=== PATIENT | female | born 1970 | race Caucasian/White ===

== ENCOUNTER 2021-03-24 06:54 | Emergency (ER) | payer BC, OTHER ==
[~2021-03-24] VITALS: Ht 165.1 cm; Wt 51.3 kg
--- NOTE | 2021-03-24 06:58 | NUR ---
NO ANSWER TO TRIAGE FROM [facility]
[2021-03-24] MEDS ORDERED: KETOROLAC 30 MG/1 ML ONE (07:28)
[2021-03-24] MEDS ORDERED: KETOROLAC 30 MG/1 ML IM ONE (07:30)
[2021-03-24 07:32] VITALS: BP 113/64
--- NOTE | 2021-03-24 07:36 | NUR ---
THIS IS A 50 YO F W/ C/O WHITE X2-3 WEEKS. SEEN AT [facility] FOR SAME. PT DENIES HX OF SAME. PT DENIES N/V. PT RESTING ON [employer] W/ CALL LIGHT IN REACH AND SIDE RAILS UPX2. PT MEDICATED PER EMAR. FUNMILAYO JAMESON.
--- NOTE | 2021-03-24 07:51 | NUR ---
Patient given discharge instructions and they have confirmed that they understand the instructions. Patient ambulatory with steady gait.
== END 2021-03-24 07:56 | disposition home or self-care (01) ==
LOC: ED 07:55
DX: G44.221 Chronic tension-type headache, intractable (principal); M54.2 Cervicalgia
CPT/HCPCS: 96372; 99283; J1885